=== PATIENT | male | born 1980 | race Caucasian/White ===

== ENCOUNTER 2021-06-11 10:44 | Day surgery (SDC) | payer MEDICAID ==
[~2021-06-11] VITALS: Ht 167.6 cm; Wt 84.5 kg
[~2021-06-11 10:44] MED LIST: SODIUM CHLORIDE 0.9% 1,000 ML ONE
[2021-06-11] MEDS ORDERED: LIDOCAINE/PF 2% 5 ML VIAL IM ONE (10:45)
[2021-06-11] MEDS ORDERED: PROPOFOL 1% 20 ML VIAL IVP ONE (10:45)
[2021-06-11 11:40] LABS: COVID AG,FIA SOURCE NASOPHARYNGEAL
[2021-06-11] MEDS ORDERED: SODIUM CHLORIDE 0.9% 1,000 ML IV ONE (14:30)
== END 2021-06-11 14:45 | disposition home or self-care (01) ==
LOC: SURGERY 10:44
PROVIDERS: ATTEND Internal Medicine Gastroenterology
DX: D64.9 Anemia, unspecified (principal); K76.6 Portal hypertension; K31.89 Other diseases of stomach and duodenum; I85.00 Esophageal varices without bleeding; J45.909 Unspecified asthma, uncomplicated; E66.3 Overweight; Z68.30 Body mass index [BMI] 30.0-30.9, adult; D69.6 Thrombocytopenia, unspecified; Z87.11 Personal history of peptic ulcer disease; Z79.899 Other long term (current) drug therapy; Z20.822 Contact with and (suspected) exposure to COVID-19
CPT/HCPCS: 43239; 87426; 88305; C1769; C9803; J2704; J3490; J7030